=== PATIENT | female | born 1985 | race Caucasian/White ===

== ENCOUNTER 2019-05-03 14:22 | Emergency (ER) | payer BC ==
[2019-05-03] MEDS ORDERED: Sodium Chloride 0.9% 1,000 ML IV ONE (14:58)
[2019-05-03] MEDS ORDERED: Sodium Chloride 0.9% 10 ML Syringe FLUSH PRN (14:58)
[2019-05-03] MEDS ORDERED: HYDROmorphone 1 MG/ML Syringe IVPUSH ONE (14:58)
[2019-05-03] MEDS ORDERED: Ondansetron 4 MG/2 ML SDV IVPUSH ONE (14:58)
[2019-05-03 15:49] LABS: ANION GAP 16.9 mmol/L (5-15); CHLORIDE,CL 105 mmol/L (98-115); SODIUM,NA 142 mmol/L (136-145)
--- NOTE | 2019-05-03 16:24 | CT ---
[id number] CT/CT Abdomen Pelvis WO IV EXAM: CT Abdomen Pelvis WO IV CLINICAL DATA: ABDOMINAL PAIN. COMPARISON STUDY: None. FINDINGS: Lung bases are clear. Evaluation of the abdominal organs is extremely limited secondary to lack of IV and oral contrast. Additionally there is a possibility of intra-abdominal fat. The liver spleen, pancreas and adrenal glands are grossly unremarkable. There appear to be postsurgical changes of gastric bypass. There appears to be a 2 mm stone in the region of the left vesicoureteral junction resulting in mild left hydroureteronephrosis. Additional punctate stones within the right and left kidneys. No right hydronephrosis or hydroureter. No bowel obstruction or inflammation. No lymphadenopathy, free fluid, or pneumoperitoneum. Technique 3.5 cm right adnexal cyst. Scattered changes of spondylosis the spine. No fracture or osseous lesion. IMPRESSION: There appears to be a 2 mm stone in the region of the left vesicoureteral junction resulting in mild left hydroureteronephrosis. Additional punctate stones are identified within the right and left kidney Henry Tubbs DO 05/03/19 1623 Thank you for allowing us to participate in the care of your patient.
[2019-05-03] MEDS ORDERED: Ondansetron 4 MG Tab.DIS PO ONE (16:31)
[2019-05-03] MEDS ORDERED: Acetaminophen/oxyCODONE 325-5 MG Tab PO ONE (16:31)
[2019-05-03] MEDS ORDERED: Tamsulosin 0.4 MG Cap.ER PO ONE (16:31)
--- NOTE | 2019-05-03 16:34 | EDM.PDOC ---
ED HPI GENERAL MEDICAL PROBLEM - General Chief Complaint: General Stated Complaint: LEFT SIDE PAIN Time Seen by Provider: 05/03/19 14:39 Source of Information: Reports: Patient History Limitations: Reports: No Limitations - History of Present Illness INITIAL COMMENTS - FREE TEXT/NARRATIVE: Patient is a 34-year-old female who presents to the emergency department this afternoon with a complaint of left flank and left lower abdominal pain. Patient states that the pain started just shortly before arrival. She feels nauseous and noticed dark urine also. Patient has a history of gastric bypass, but denies history of renal calculi. Patient also denies chest pain, shortness of breath, bowel changes, low back pain, any trauma, fever, or blood in stool. Onset: Today Duration: Hour(s): Location: Reports: Abdomen, Back Quality: Reports: Sharp Severity: Moderate Improves with: Reports: None Worsens with: Reports: None Associated Symptoms: Reports: Nausea/Vomiting Left Flank Pain Score (Numeric/FACES): 10 - Related Data Allergies Allergy/AdvReac Type Severity Reaction Status Date / Time No Known Drug Allergies Allergy NKDA Verified 04/03/14 12:29 Home Meds: Home Meds Albuterol Sulfate [Albuterol Sulfate HFA] 1 - 2 puff INH ASDIRECTED PRN [History] Albuterol/Ipratropium [DuoNeb 3.0-0.5 MG/3 ML] 1 unit INH Q6H PRN 04/03/14 [ History] Fluticasone Propionate [Flovent HFA 110 MCG] 1 puff INH BID 04/03/14 [History] Multivitamin with Minerals [Multiple Vitamin] 1 tab PO DAILY 04/03/14 [History] ED ROS GENERAL - Review of Systems Review Of Systems: Comprehensive ROS is negative, except as noted in HPI. Constitutional: Reports: No Symptoms HEENT: Reports: No Symptoms Respiratory: Reports: No Symptoms Cardiovascular: Reports: No Symptoms Endocrine: Reports: No Symptoms GI/Abdominal: Reports: Abdominal Pain : Reports: Flank Pain, Hematuria Musculoskeletal: Reports: No Symptoms Skin: Reports: No Symptoms Neurological: Reports: No Symptoms Psychiatric: Reports: No Symptoms Hematologic/Lymphatic: Reports: No Symptoms Immunologic: Reports: No Symptoms ED EXAM, GENERAL - Physical Exam Exam: See Below Exam Limited By: No Limitations General Appearance: Alert, WD/WN, Moderate Distress Throat/Mouth: Normal Inspection, Normal Oropharynx, No Airway Compromise Head: Atraumatic, Normocephalic Neck: Normal Inspection, Supple Respiratory/Chest: No Respiratory Distress, Lungs Clear, Normal Breath Sounds, No Accessory Muscle Use, Chest Non-Tender Cardiovascular: Regular Rate, Rhythm, No Murmur GI/Abdominal: Normal Bowel Sounds, Soft, Tender (Left lower quadrant) Back Exam: CVA Tenderness (L). No: CVA Tenderness (R) Extremities: Normal Inspection, No Pedal Edema Neurological: Alert, Oriented, Normal Cognition Psychiatric: Normal Affect, Normal Mood Skin Exam: Warm, Dry, Intact, Normal Color, No Rash Lymphatic: No Adenopathy Course - Vital Signs Last Recorded V/S: Last Vital Signs Temp 97.0 F 05/03/19 14:40 Pulse 52 L 05/03/19 14:40 Resp 24 H 05/03/19 14:40 BP 141/93 H 05/03/19 14:40 Pulse Ox 100 05/03/19 14:40 - Orders/Labs/Meds Orders: Active Orders 24 hr Category Date Time Status Peripheral IV Care [RC] . DIRECTED Care 05/03/19 14:59 Ordered Sodium Chloride 0.9% [Saline Flush] Med 05/03/19 14:58 Ordered 10 ml FLUSH Q8HR PRN Peripheral IV Insertion Adult [OM.PC] Routine Oth 05/03/19 14:58 Ordered Medication Orders Sodium Chloride (Saline Flush) 10 ml FLUSH Q8HR PRN PRN Reason: keep vein open Last Admin: 05/03/19 15:44 Dose: 10 ml Labs: Laboratory Tests 05/03/19 05/03/19 05/03/19 Range/Units 14:50 15:22 15:22 WBC 10.01 H (5.00-10.00) 10^3/uL RBC 4.21 (3.80-5.50) 10^6/uL Hgb 9.5 L (12.0-16.0) g/dL Hct 31.6 L (37.0-47.0) % MCV 75.1 L (82.0-92.0) fL MCH 22.6 L (27.0-31.0) pg MCHC 30.1 L (32.0-36.0) g/dL RDW 16.9 H (11.5-14.5) % Plt Count 429 H (150-400) 10^3/uL MPV 9.0 (7.4-10.4) fL Immature Gran % (Auto) 0.1 (0.0-5.0) % Neut % (Auto) 75.7 H (50.0-70.0) % Lymph % (Auto) 17.4 L (20.0-40.0) % [place] % (Auto) 4.5 (2.0-8.0) % Eos % (Auto) 1.7 (1.0-3.0) % Baso % (Auto) 0.6 (0.0-1.0) % Immature Gran # (Auto) 0.01 (0.00-0.50) 10^3/uL Neut # (Auto) 7.58 H (2.50-7.00) 10^3/uL Lymph # (Auto) 1.74 (1.00-4.00) 10^3/uL [place] # (Auto) 0.45 (0.10-0.80) 10^3/uL Eos # (Auto) 0.17 (0.10-0.30) 10^3/uL Baso # (Auto) 0.06 (0.00-0.10) 10^3/uL Sodium 142 (136-145) mmol/L Potassium 3.9 (3.3-5.3) mmol/L Chloride 105 (98-115) mmol/L Carbon Dioxide 24.0 (21.0-32.0) mmol/L Anion Gap 16.9 H (5-15) mmol/L BUN 19 (6-25) mg/dL Creatinine 0.82 (0.51-1.17) mg/dL Est Cr Clr Drug Dosing TNP Estimated GFR (MDRD) > 60 mL/min Glucose 116 H (75 - 99) mg/dL Calcium 9.2 (8.7-10.3) mg/dL Total Bilirubin 0.7 (0.2-1.0) mg/dL AST 45 H (15-37) U/L ALT 54 (12-78) U/L Alkaline Phosphatase 76 (46-116) IU/L Total Protein 6.7 (6.4-8.2) g/dL Albumin 3.69 (3.00-4.80) g/dL Specimen Type Urine Color (YELLOW) Urine Appearance (CLEAR) Urine pH (5.0-9.0) Ur Specific [place] (1.005-1.030) Urine Protein (NEGATIVE) mg/dL Urine Glucose (UA) (NEGATIVE) mg/dL Urine Ketones (NEGATIVE) mg/dL Urine Occult Blood (NEGATIVE) Urine Nitrite (NEGATIVE) Urine Bilirubin (NEGATIVE) Urine Urobilinogen (0.2-1.0) E.U./dL Ur Leukocyte Esterase (NEGATIVE) Urine RBC (0-5) /HPF Urine WBC (0-5) /HPF Ur Epithelial Cells /LPF Urine Bacteria (NONE TO FEW) /HPF Urine Mucus (NEGATIVE) /LPF Urine HCG, Qual Negative (NEGATIVE) 05/03/19 Range/Units 15:35 WBC (5.00-10.00) 10^3/uL RBC (3.80-5.50) 10^6/uL Hgb (12.0-16.0) g/dL Hct (37.0-47.0) % MCV (82.0-92.0) fL MCH (27.0-31.0) pg MCHC (32.0-36.0) g/dL RDW (11.5-14.5) % Plt Count (150-400) 10^3/uL MPV (7.4-10.4) fL Immature Gran % (Auto) (0.0-5.0) % Neut % (Auto) (50.0-70.0) % Lymph % (Auto) (20.0-40.0) % [place] % (Auto) (2.0-8.0) % Eos % (Auto) (1.0-3.0) % Baso % (Auto) (0.0-1.0) % Immature Gran # (Auto) (0.00-0.50) 10^3/uL Neut # (Auto) (2.50-7.00) 10^3/uL Lymph # (Auto) (1.00-4.00) 10^3/uL [place] # (Auto) (0.10-0.80) 10^3/uL Eos # (Auto) (0.10-0.30) 10^3/uL Baso # (Auto) (0.00-0.10) 10^3/uL Sodium (136-145) mmol/L Potassium (3.3-5.3) mmol/L Chloride (98-115) mmol/L Carbon Dioxide (21.0-32.0) mmol/L Anion Gap (5-15) mmol/L BUN (6-25) mg/dL Creatinine (0.51-1.17) mg/dL Est Cr Clr Drug Dosing Estimated GFR (MDRD) mL/min Glucose (75 - 99) mg/dL Calcium (8.7-10.3) mg/dL Total Bilirubin (0.2-1.0) mg/dL AST (15-37) U/L ALT (12-78) U/L Alkaline Phosphatase (46-116) IU/L Total Protein (6.4-8.2) g/dL Albumin (3.00-4.80) g/dL Specimen Type . Urine Color Yellow (YELLOW) Urine Appearance Slightly cloudy H (CLEAR) Urine pH 7.0 (5.0-9.0) Ur Specific [place] 1.020 (1.005-1.030) Urine Protein 30 H (NEGATIVE) mg/dL Urine Glucose (UA) Negative (NEGATIVE) mg/dL Urine Ketones >=160 H (NEGATIVE) mg/dL Urine Occult Blood Large H (NEGATIVE) Urine Nitrite Negative (NEGATIVE) Urine Bilirubin Small H (NEGATIVE) Urine Urobilinogen 1.0 (0.2-1.0) E.U./dL Ur Leukocyte Esterase Negative (NEGATIVE) Urine RBC 75-100 H (0-5) /HPF Urine WBC 0-5 (0-5) /HPF Ur Epithelial Cells Many H /LPF Urine Bacteria Few (NONE TO FEW) /HPF Urine Mucus Few H (NEGATIVE) /LPF Urine HCG, Qual (NEGATIVE) Meds: Medications Generic Name Dose Route Start Last Admin Trade Name Freq PRN Reason Stop Dose Admin Sodium Chloride 10 ml 05/03/19 14:58 05/03/19 15:44 Saline Flush FLUSH 10 ml Q8HR PRN Administration keep vein open Discontinued Medications Generic Name Dose Route Start Last Admin Trade Name Freq PRN Reason Stop Dose Admin Hydromorphone HCl 0.5 mg 05/03/19 14:58 05/03/19 15:45 Dilaudid IVPUSH 05/03/19 14:59 0.5 mg ONETIME ONE Administration Sodium Chloride 1,000 mls @ 999 mls/hr 05/03/19 14:58 05/03/19 16:08 Normal Saline IV 05/03/19 15:58 999 mls/hr .BOLUS ONE Administration Ondansetron HCl 4 mg 05/03/19 14:58 05/03/19 15:45 Zofran IVPUSH 05/03/19 14:59 4 mg ONETIME ONE Administration Ondansetron HCl 16 mg 05/03/19 16:31 Zofran Odt PO 05/03/19 16:32 ONETIME ONE Oxycodone/Acetaminophen 6 tab 05/03/19 16:31 Percocet 325-5 Mg PO 05/03/19 16:32 ONETIME ONE Tamsulosin HCl 1.2 mg 05/03/19 16:31 Flomax PO 05/03/19 16:32 ONETIME ONE - Radiology Interpretation Free Text/Narrative:: CT abdomen and pelvis without contrast shows a 2 mm calculi at the UVJ with mild hydronephrosis on left - Re-Assessments/Exams Free Text/Narrative Re-Assessment/Exam: 05/03/19 16:34 Patient afebrile, vital signs stable, pain relieved. Patient given Percocet, Flomax, and Zofran to go. Patient will follow-up in 2 days at [facility] for urology referral. Departure - Departure Time of Disposition: 16:38 Disposition: Home, Self-Care 01 Condition: Good Clinical Impression: Renal and ureteric calculus - Discharge Information Instructions: Kidney Stones, [id number], Renal Colic, [id number] Referrals: Yina Chang MD [Primary Care Provider] - Forms: ED Department Discharge Additional Instructions: Follow-up at [facility] on Sunday for urology referral. Return to emergency department sooner symptoms continue or worsen. Take medication as directed Sepsis Event Note - Evaluation Sepsis Screening Result: No Definite Risk - Focused Exam Vital Signs: Vital Signs Temp Pulse Resp BP Pulse Ox 05/03/19 14:40 97.0 F 52 L 24 H 141/93 H 100 Date Exam was Performed: 05/03/19 Time Exam was Performed: 16:34 - My Orders Last 24 Hours: My Active Orders 05/03/19 14:58 Sodium Chloride 0.9% [Saline Flush] 10 ml FLUSH Q8HR PRN Peripheral IV Insertion Adult [OM.PC] Routine 05/03/19 14:59 Peripheral IV Care [RC] . DIRECTED - Assessment/Plan Last 24 Hours: My Active Orders 05/03/19 14:58 Sodium Chloride 0.9% [Saline Flush] 10 ml FLUSH Q8HR PRN Peripheral IV Insertion Adult [OM.PC] Routine 05/03/19 14:59 Peripheral IV Care [RC] . DIRECTED Assessment:: Renal calculi Plan: Follow-up with PCP for urology department
== END 2019-05-03 17:15 | disposition home or self-care (01) ==
LOC: KA.ED 14:22
DX: N13.2 Hydronephrosis with renal and ureteral calculous obstruction (principal)
CPT/HCPCS: 36415; 74176; 80053; 81001; 81025; 85025; 96361; 96374; 96375; 99284-25; A9270-GY; J1170; J2405; J7030

== ENCOUNTER 2019-08-01 12:59 | Emergency (ER) | payer BC, OTHER ==
[2019-08-01] MEDS ORDERED: Acetaminophen/HYDROcodone 325-5 MG Tab PO ONE (13:13)
--- NOTE | 2019-08-01 13:39 | CR ---
[id number] RAD/RAD Knee Right 3V EXAM: RAD Knee Right 3V CLINICAL DATA: TRAUMA COMPARISON: NO PREVIOUS SIMILAR EXAM IS AVAILABLE. FINDINGS: No fracture or dislocation is seen. There is no radiopaque foreign body in the soft tissues. There is no air in the soft tissues. There is no cortical thickening or periosteal reaction either. IMPRESSION: NEGATIVE PLAIN FILM EXAM. Hugo Villela MD 08/01/19 [id number] Thank you for allowing us to participate in the care of your patient.
--- NOTE | 2019-08-01 14:12 | EDM.PDOC ---
ED HPI GENERAL MEDICAL PROBLEM - General Chief Complaint: General Stated Complaint: R KNEE PAIN Time Seen by Provider: 08/01/19 13:32 Source of Information: Reports: Patient, Other (boss) History Limitations: Reports: No Limitations - History of Present Illness INITIAL COMMENTS - FREE TEXT/NARRATIVE: Patient presents with right upper calf pain that started suddenly about an hour ago. 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 It hurts to plantar flex with walking and she can't stand on her toes with the right foot now. She denies any other injury. She also tells me she had a hysterectomy about 8 weeks ago and was on bedrest for the following 6 weeks. No blood thinners. She denies dyspnea or any chest pain. Right Posterior Knee Pain Score (Numeric/FACES): 8 - Related Data Allergies Allergy/AdvReac Type Severity Reaction Status Date / Time No Known Drug Allergies Allergy NKDA Verified 04/03/14 12:29 Home Meds: Home Meds Albuterol Sulfate [Albuterol Sulfate HFA] 1 - 2 puff INH ASDIRECTED PRN [History] Albuterol/Ipratropium [DuoNeb 3.0-0.5 MG/3 ML] 1 unit INH Q6H PRN 04/03/14 [ History] Multivitamin with Minerals [Multiple Vitamin] 1 tab PO DAILY 04/03/14 [History] Escitalopram [Lexapro] 20 mg PO DAILY 08/01/19 [History] busPIRone HCl [Buspirone HCl] 7.5 mg PO BID 08/01/19 [History] Social & Family History - Tobacco Use Smoking Status *Q: Never Smoker Second Hand Smoke Exposure: No - Caffeine Use Caffeine Use: Reports: Coffee, Energy Drinks - Recreational Drug Use Recreational Drug Use: No ED ROS GENERAL - Review of Systems Review Of Systems: See Below Constitutional: Denies: Fever, Chills, Malaise, Weakness HEENT: Reports: No Symptoms Respiratory: Denies: Shortness of Breath, Cough Cardiovascular: Denies: Chest Pain, Lightheadedness, Syncope Endocrine: Denies: Fatigue GI/Abdominal: Denies: Abdominal Pain, Diarrhea, Vomiting : Denies: Dysuria, Flank Pain Musculoskeletal: Reports: Leg Pain. Denies: Neck Pain, Shoulder Pain, Arm Pain , Back Pain, Hand Pain, Joint Pain Skin: Denies: Cyanosis, Jaundice, Mottled, Pallor, Diaphoresis Neurological: Denies: Confusion, Dizziness, Headache, Seizure, Syncope, Trouble Speaking, Difficulty Walking Psychiatric: Denies: Agitation, Anxiety, Confusion Hematologic/Lymphatic: Denies: Easy Bleeding ED EXAM, GENERAL - Physical Exam Exam: See Below Exam Limited By: No Limitations General Appearance: Alert, WD/WN, No Apparent Distress Eye Exam: Bilateral Eye: EOMI, Normal Inspection, PERRL Ears: Normal External Exam, Hearing Grossly Normal Nose: Normal Inspection, No Blood Throat/Mouth: Normal Inspection, Normal Lips, Normal Voice, No Airway Compromise Head: Atraumatic, Normocephalic Neck: Full Range of Motion Respiratory/Chest: No Respiratory Distress, Lungs Clear, Normal Breath Sounds, No Accessory Muscle Use Cardiovascular: Regular Rate, Rhythm, No Murmur GI/Abdominal: Normal Bowel Sounds, Soft, Non-Tender, No Organomegaly, No Distention, No Abnormal Bruit Back Exam: Normal Inspection, Full Range of Motion. No: CVA Tenderness (L), CVA Tenderness (R) Extremities: Normal Range of Motion, No Pedal Edema, Normal Capillary Refill, Pan's Sign, Leg Pain, Other (Bilateral calves measure 44 cm in circumference. Palpation of small area in right upper calf is very tender to palpation but no tesfaye sign or deficit evident and calf is not tender throughout. Achilles is not tender or injured per exam. Plantar and dorsiflexion is intact but painful both active and passive on right. No Ulrich's cyst evident. Knee ROM normal.). No: Increased Warmth, Mottled, Pallor, Redness Course - Vital Signs Last Recorded V/S: Last Vital Signs Temp 97 F 08/01/19 13:10 Pulse 77 08/01/19 13:10 Resp 20 08/01/19 13:10 BP 115/70 08/01/19 13:10 Pulse Ox 97 08/01/19 13:10 - Orders/Labs/Meds Meds: Medications Discontinued Medications Generic Name Dose Route Start Last Admin Trade Name Freq PRN Reason Stop Dose Admin Hydrocodone Bitart/Acetaminophen 2 tab 08/01/19 13:13 08/01/19 13:21 [place] 325-5 Mg PO 08/01/19 13:14 2 tab ONETIME ONE Administration - Re-Assessments/Exams Free Text/Narrative Re-Assessment/Exam: 08/01/19 14:32 This is most likely either a muscle tear or a DVT. I also discussed this with Anjum GARRIDO to see if we could reliably rule out DVT with d-dimer but since her recent surgery puts her in the medium risk category we should get US. We talked with [facility] tech and she can come over here to do the US in the ER shortly. Patient is feeling better with the hydrocodone. 08/01/19 16:27 Xrays show no pathology. US shows no evidence of DVT or definite muscle tear. Findings most consistent with popliteal cyst or possibly hematoma associated with small muscle injury. Discussed findings with patient and with her PCP Dr. Chang. With her history of gastric bypass surgery she is quite limited with any NSAID use but could use Naproxen very sparingly. 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 Chang then to re-evaluate and determine work status beyond that. Patient okay with this plan and discharged to home in stable condition. Departure - Departure Time of Disposition: 16:24 Disposition: Home, Self-Care 01 Condition: Good Clinical Impression: Popliteal cyst Qualifiers: Laterality: right Qualified Code(s): M71.21 - Synovial cyst of popliteal space [Ulrich], right knee - Discharge Information Instructions: Ulrich Cyst Referrals: Yojana Ordoñez PA-C [Primary Care Provider] - Additional Instructions: 1. Drink 8 cups of water daily. 2. Try to avoid movements and activities that cause worse pain. 3. Use cold packs 2-4 times a day for the next 2 days then alternate with cold and warm packs. 4. Follow up with Dr. Chang on Sunday. Call them today to schedule this. 5. You use Tylenol for pain control and Naproxen sparingly if needed. Sepsis Event Note - Evaluation Sepsis Screening Result: No Definite Risk - Focused Exam Vital Signs: Vital Signs Temp Pulse Resp BP Pulse Ox 08/01/19 13:10 97 F 77 20 115/70 97 Date Exam was Performed: 08/01/19 Time Exam was Performed: 13:58
--- NOTE | 2019-08-01 16:03 | US ---
[id number] US/US Venous Doppler LE Right EXAM: US Venous Doppler LE Right INDICATION: CALF PAIN. COMPARISON: None. DISCUSSION: The deep venous structures are compressible. No valvular incompetence or pulsatility seen. Spontaneity, phasicity and response to augmentation were noted by the technologist. In the medial and posterior aspect of the lower leg there is a 15 x 11 x 7 mm hypoechoic structure. Location appearance is most consistent with a small popliteal cyst. In the setting of injury, small hematoma is also possible. Correlate with site of injury. IMPRESSION: Negative for DVT. Other findings are described above. Kleber Mei MD 08/01/19 6643 Thank you for allowing us to participate in the care of your patient.
[2019-08-01 16:11] LABS: BARBITURATE SCREEN,URINE NEGATIVE (NEGATIVE); BENZODIAZEPINES SCREEN,URINE NEGATIVE (NEGATIVE); TCA SCREEN,URINE NEGATIVE (NEGATIVE); THC SCREEN,URINE 50 NG/ML NEGATIVE (NEGATIVE)
== END 2019-08-01 16:35 | disposition home or self-care (01) ==
LOC: KA.ED 12:59
DX: M71.21 Synovial cyst of popliteal space [Baker], right knee (principal)
CPT/HCPCS: 73562-RT; 80305-QW; 93971; 99284-25; A9270-GY

== ENCOUNTER 2021-02-22 01:46 | Emergency (ER) | payer OTHER ==
[2021-02-22] MEDS ORDERED: predniSONE 20 MG Tab ONE (01:52)
[2021-02-22] MEDS ORDERED: predniSONE 20 MG Tab PO ONE (01:53)
[2021-02-22] MEDS ORDERED: predniSONE 10 MG Tab PO ONE (02:08)
[2021-02-22] MEDS ORDERED: Albuterol 0.083% 2.5 MG/3 ML Neb Soln NEB ONE ×2 (02:09→02:19)
--- NOTE | 2021-02-22 02:18 | EDM.PDOC ---
ED HPI GENERAL MEDICAL PROBLEM - General Chief Complaint: General Stated Complaint: Shortness of breath Time Seen by Provider: 02/22/21 02:04 Source of Information: Reports: Patient History Limitations: Reports: No Limitations - History of Present Illness INITIAL COMMENTS - FREE TEXT/NARRATIVE: Patient presents emergency room for shortness of breath and asthma exacerbation. There has been recent smoke in the air which causes it. She has been doing nebs throughout the day with not much relief. Patient has shortness of breath chest tightness with breathing, wheezing and mild cough. She has no other cold symptoms no pneumonia symptoms. She was tested earlier in the clinic and was negative for COVID-19. Patient states this is exactly like her asthma exacerbation. She denies smoking. Bilateral Chest/Back Pain Score (Numeric/FACES): 5 - Related Data Allergies Allergy/AdvReac Type Severity Reaction Status Date / Time No Known Drug Allergies Allergy NKDA Verified 02/22/21 01:54 Home Meds: Home Meds Albuterol Sulfate [Albuterol Sulfate HFA] 1 - 2 puff INH ASDIRECTED PRN 04/03/14 [History] Albuterol/Ipratropium [DuoNeb 3.0-0.5 MG/3 ML] 1 unit INH Q6H PRN 04/03/14 [History] Multivitamin with Minerals [Multiple Vitamin] 1 tab PO DAILY 04/03/14 [History] Escitalopram [Lexapro] 20 mg PO DAILY 08/01/19 [History] busPIRone HCl [Buspirone HCl] 7.5 mg PO BID 08/01/19 [History] Past Medical History HEENT History: Reports: None Cardiovascular History: Reports: None Respiratory History: Reports: Asthma Gastrointestinal History: Reports: None Genitourinary History: Reports: 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: Musculoskeletal History: Reports: None Neurological History: Reports: Migraines Psychiatric History: Reports: Anxiety, Depression Endocrine/Metabolic History: Reports: None Hematologic History: Reports: None Immunologic History: Reports: None Oncologic (Cancer) History: Reports: None Dermatologic History: Reports: None - Infectious Disease History Infectious Disease History: Reports: None - Past Surgical History Head Surgeries/Procedures: Reports: None HEENT Surgical History: Reports: None Cardiovascular Surgical History: Reports: None Respiratory Surgical History: Reports: None GI Surgical History: Reports: Other (See Below) Other GI Surgeries/Procedures: gastric bypass 2007 Female Surgical History: Reports: Hysterectomy Musculoskeletal Surgical History: Reports: None Dermatological Surgical History: Reports: None Social & Family History - Family History Family Medical History: No Pertinent Family History - Tobacco Use Tobacco Use Status *Q: Former Tobacco User Used Tobacco, but Quit: Yes Month/Year Tobacco Last Used: 2012 - Caffeine Use Caffeine Use: Reports: Coffee - Recreational Drug Use Recreational Drug Use: No ED ROS GENERAL - Review of Systems Review Of Systems: See Below Constitutional: Reports: No Symptoms HEENT: Reports: No Symptoms Respiratory: Reports: Shortness of Breath, Wheezing, Cough Cardiovascular: Reports: Chest Pain Endocrine: Reports: No Symptoms GI/Abdominal: Reports: No Symptoms Musculoskeletal: Reports: No Symptoms Skin: Reports: No Symptoms Neurological: Reports: No Symptoms Psychiatric: Reports: No Symptoms ED EXAM, GENERAL - Physical Exam Exam: See Below Exam Limited By: No Limitations General Appearance: Alert, WD/WN, No Apparent Distress Ear Exam: Bilateral Ear: TM normal Nose: Normal Inspection Throat/Mouth: Normal Inspection, Normal Oropharynx Head: Atraumatic, Normocephalic Neck: Normal Inspection, Supple Respiratory/Chest: Wheezing. No: Respiratory Distress, Stridor, Accessory Muscle Use, Retractions Cardiovascular: Normal Peripheral Pulses, Regular Rate, Rhythm Neurological: Alert, Oriented, Normal Cognition Psychiatric: Normal Affect, Normal Mood Skin Exam: Warm, Dry, Intact Course - Vital Signs Last Recorded V/S: Last Vital Signs Temp 97.4 F 02/22/21 01:57 Pulse 85 02/22/21 01:57 Resp 24 H 02/22/21 01:57 BP 142/85 H 02/22/21 01:57 Pulse Ox 92 L 02/22/21 01:57 - Orders/Labs/Meds Orders: Active Orders 24 hr Category Date Time Status RT Aerosol Therapy [RC] ASDIRECTED Care 02/22/21 02:09 Active Meds: Medications Discontinued Medications Generic Name Dose Route Start Last Admin Trade Name Freq PRN Reason Stop Dose Admin Albuterol 2.5 mg 02/22/21 02:09 Albuterol 0.083% 2.5 Mg/3 Ml Neb Soln NEB 02/22/21 02:10 ONETIME ONE Prednisone 40 mg 02/22/21 01:53 02/22/21 01:53 Prednisone 20 Mg Tab PO 02/22/21 01:54 40 mg ONETIME ONE Administration Prednisone Confirm 02/22/21 01:52 02/22/21 02:07 Prednisone 20 Mg Tab Administered 02/22/21 01:53 Not Given Dose 40 mg .ROUTE .STK-MED ONE Prednisone 10 mg 02/22/21 02:08 Prednisone 10 Mg Tab PO 02/22/21 02:09 ONETIME ONE - Re-Assessments/Exams Free Text/Narrative Re-Assessment/Exam: 02/22/21 02:16 50 mg of prednisone given with an albuterol nebulizer. Patient's oxygen saturations 96 to 100% on room air. Patient in no acute distress but she is definitely having asthma exacerbation. Going to give her 40 mg of prednisone p.o. for the next 4 days follow-up in clinic later this week if not better. Patient was given strict return precautions emergency room. Low threshold on returning. Work note also provided. She has plenty nebs as well. Departure - Departure Time of Disposition: 02:13 Disposition: Home, Self-Care 01 Condition: Good Clinical Impression: Asthma Qualifiers: Asthma severity: moderate Asthma persistence: unspecified Asthma complication type: with acute exacerbation Qualified Code(s): J45.901 - Unspecified asthma with (acute) exacerbation - Discharge Information *PRESCRIPTION DRUG MONITORING PROGRAM REVIEWED*: No *COPY OF PRESCRIPTION DRUG MONITORING REPORT IN PATIENT MIREYA: No Instructions: Asthma, Adult Referrals: Yina Chang MD [Primary Care Provider] - Care Plan Goals: continue nebs, f/u with PCP in the next few days if no improvement, please do not hesitate to return to emergency room for any no further improvement or any worsening symptoms. Sepsis Event Note (ED) - Evaluation Sepsis Screening Result: No Definite Risk - Focused Exam Vital Signs: Vital Signs Temp Pulse Resp BP Pulse Ox 02/22/21 01:57 97.4 F 85 24 H 142/85 H 92 L - My Orders Last 24 Hours: My Active Orders 02/22/21 02:09 RT Aerosol Therapy [RC] ASDIRECTED - Assessment/Plan Last 24 Hours: My Active Orders 02/22/21 02:09 RT Aerosol Therapy [RC] ASDIRECTED
[2021-02-22 02:26] VITALS: PULSE 80
[2021-02-22 02:52] VITALS: BP 126/93
== END 2021-02-22 02:33 | disposition home or self-care (01) ==
LOC: KA.ED 01:46
DX: J45.901 Unspecified asthma with (acute) exacerbation (principal); Z79.899 Other long term (current) drug therapy
CPT/HCPCS: 94640; 99284; J7512; J7613-GY

== ENCOUNTER 2021-04-10 03:57 | Emergency (ER) | payer OTHER ==
[2021-04-10] MEDS: Albuterol 0.083% 2.5 MG/3 ML Neb Soln NEB ONE (04:04)
[2021-04-10] MEDS: Albuterol 0.083% 2.5 MG/3 ML Neb Soln ONE (04:10)
[2021-04-10] MEDS: Albuterol/Ipratropium 3.0-0.5 MG/3 ML Neb Soln ONE (04:10)
--- NOTE | 2021-04-10 04:20 | EDM.PDOC ---
ED HPI GENERAL MEDICAL PROBLEM - General Chief Complaint: General Stated Complaint: Asthma Attack Time Seen by Provider: 04/10/21 04:10 Source of Information: Reports: Patient History Limitations: Reports: No Limitations - History of Present Illness INITIAL COMMENTS - FREE TEXT/NARRATIVE: 36 YO WF PRESENTS TO ER COMPLAINING OF SHORTNESS OF BREATH WHICH BEGAN AROUND MIDNIGHT TONIGHT. PT WITH PMH OF ASTHMA WITH PREVIOUS ER VISIT APPROXIMATELY 1 MONTH AGO FOR SAME. PT DENIES ANY COVID CONCERNS, STATES THIS IS TYPICAL OF HER PREVIOUS ASTHMA EXACERBATIONS. PT DENIES URI SYMPTOMS, NO FEVER/CHILLS. PT DENIES ANY PAST HISTORY OF RESPIRATORY FAILURE OR REQUIRED HOSPITALIZATIONS FOR HER ASTHMA EXACERBATION IN THE PAST. PT STATES SHE HAS BEEN USING HER ALBUTEROL AT HOME WITHOUT IMPROVEMENT. PT DENIES CHEST PAIN OR DIAPHORESIS. Onset: Today Duration: Hour(s): (4) Location: Reports: Chest Severity: Moderate Improves with: Reports: Medication Worsens with: Reports: None Associated Symptoms: Reports: Shortness of Breath Treatments CLINICAL EDUCATION CONSULTANT: Reports: Breathing Treatments - Related Data Allergies Allergy/AdvReac Type Severity Reaction Status Date / Time No Known Drug Allergies Allergy NKDA Verified 04/10/21 04:04 Home Meds: Home Meds Albuterol Sulfate [Albuterol Sulfate HFA] 1 - 2 puff INH ASDIRECTED PRN 04/03/14 [History] Albuterol/Ipratropium [DuoNeb 3.0-0.5 MG/3 ML] 1 unit INH Q6H PRN 04/03/14 [History] Multivitamin with Minerals [Multiple Vitamin] 1 tab PO DAILY 04/03/14 [History] Escitalopram [Lexapro] 20 mg PO DAILY 08/01/19 [History] busPIRone HCl [Buspirone HCl] 7.5 mg PO BID 08/01/19 [History] predniSONE 20 mg PO WITHBREAKFAST #15 tab 04/10/21 [Rx] Past Medical History HEENT History: Reports: None Cardiovascular History: Reports: None Respiratory History: Reports: Asthma Gastrointestinal History: Reports: None Genitourinary History: Reports: 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: Musculoskeletal History: Reports: None Neurological History: Reports: Migraines Psychiatric History: Reports: Anxiety, Depression Endocrine/Metabolic History: Reports: None Hematologic History: Reports: None Immunologic History: Reports: None Oncologic (Cancer) History: Reports: None Dermatologic History: Reports: None - Infectious Disease History Infectious Disease History: Reports: None - Past Surgical History Head Surgeries/Procedures: Reports: None HEENT Surgical History: Reports: None Cardiovascular Surgical History: Reports: None Respiratory Surgical History: Reports: None GI Surgical History: Reports: Other (See Below) Other GI Surgeries/Procedures: gastric bypass 2007 Female Surgical History: Reports: Hysterectomy Musculoskeletal Surgical History: Reports: None Dermatological Surgical History: Reports: None Social & Family History - Family History Family Medical History: No Pertinent Family History - Caffeine Use Caffeine Use: Reports: Coffee ED ROS GENERAL - Review of Systems Review Of Systems: See Below Constitutional: Reports: No Symptoms HEENT: Reports: No Symptoms Respiratory: Reports: Shortness of Breath, Wheezing Cardiovascular: Reports: No Symptoms Endocrine: Reports: No Symptoms GI/Abdominal: Reports: No Symptoms : Reports: No Symptoms Musculoskeletal: Reports: No Symptoms Skin: Reports: No Symptoms Neurological: Reports: No Symptoms Psychiatric: Reports: No Symptoms Hematologic/Lymphatic: Reports: No Symptoms Immunologic: Reports: No Symptoms ED EXAM, GENERAL - Physical Exam Exam: See Below Exam Limited By: No Limitations General Appearance: Alert, WD/WN, No Apparent Distress Eye Exam: Bilateral Eye: PERRL Head: Atraumatic, Normocephalic Neck: Normal Inspection, Supple, Non-Tender, Full Range of Motion Respiratory/Chest: No Respiratory Distress, Chest Non-Tender, Wheezing, Accessory Muscle Use Cardiovascular: Normal Peripheral Pulses, Regular Rate, Rhythm, No Edema, No Gallop, No JVD, No Murmur, No Rub GI/Abdominal: Normal Bowel Sounds, Soft, Non-Tender, No Organomegaly, No Distention, No Abnormal Bruit, No Mass Back Exam: Normal Inspection, Full Range of Motion, NT Extremities: Normal Inspection, Normal Range of Motion, Non-Tender, Normal Capillary Refill, No Pedal Edema Neurological: Alert, Oriented, CN II-XII Intact, Normal Cognition, Normal Gait, No Motor/Sensory Deficits Psychiatric: Normal Affect, Normal Mood Skin Exam: Warm, Dry, Intact, Normal Color, No Rash Lymphatic: No Adenopathy Course - Vital Signs Last Recorded V/S: Last Vital Signs Temp 97.6 F 04/10/21 04:05 Pulse 84 04/10/21 04:55 Resp 26 H 04/10/21 04:54 BP 141/96 H 04/10/21 04:54 Pulse Ox 97 04/10/21 04:54 - Orders/Labs/Meds Orders: Active Orders 24 hr Category Date Time Status Peripheral IV Care [RC] . DIRECTED Care 04/10/21 04:25 Active RT Aerosol Therapy [RC] ASDIRECTED Care 04/10/21 04:04 Active RT Aerosol Therapy [RC] ASDIRECTED Care 04/10/21 04:51 Active Chest 2V [CR] Stat Exams 04/10/21 04:24 Ordered Sodium Chloride 0.9% [Normal Saline] 1,000 ml Med 04/10/21 04:24 Active IV .BOLUS Sodium Chloride 0.9% [Saline Flush] Med 04/10/21 04:24 Active 10 ml FLUSH Q8HR PRN Peripheral IV Insertion Adult [OM.PC] Routine Oth 04/10/21 04:24 Ordered Medication Orders Sodium Chloride (Normal Saline) 1,000 mls @ 999 mls/hr IV .BOLUS ONE Stop: 04/10/21 05:24 Last Admin: 04/10/21 04:39 Dose: 999 mls/hr Documented by: DIAMOND Sodium Chloride (Sodium Chloride 0.9% 10 Ml Syringe) 10 ml FLUSH Q8HR PRN PRN Reason: keep vein open Meds: Medications Generic Name Dose Route Start Last Admin Trade Name Freq PRN Reason Stop Dose Admin Sodium Chloride 1,000 mls @ 999 mls/hr 04/10/21 04:24 04/10/21 04:39 Normal Saline IV 04/10/21 05:24 999 mls/hr .BOLUS ONE Administration Sodium Chloride 10 ml 04/10/21 04:24 Sodium Chloride 0.9% 10 Ml Syringe FLUSH Q8HR PRN keep vein open Discontinued Medications Generic Name Dose Route Start Last Admin Trade Name Freq PRN Reason Stop Dose Admin Albuterol Confirm 04/10/21 04:02 04/10/21 04:10 Albuterol 0.083% 2.5 Mg/3 Ml Neb Soln Administered 04/10/21 04:03 Not Given Dose 2.5 mg .ROUTE .STK-MED ONE Albuterol 2.5 mg 04/10/21 04:04 04/10/21 04:04 Albuterol 0.083% 2.5 Mg/3 Ml Neb Soln NEB 04/10/21 04:05 2.5 mg ONETIME ONE Administration Albuterol/Ipratropium Confirm 04/10/21 04:00 04/10/21 04:10 Albuterol/Ipratropium 3.0-0.5 Mg/3 Ml Neb Soln Administered 04/10/21 04:01 Not Given Dose 3 ml .ROUTE .STK-MED ONE Albuterol/Ipratropium 3 ml 04/10/21 04:37 04/10/21 04:29 Albuterol/Ipratropium 3.0-0.5 Mg/3 Ml Neb Soln NEB 04/10/21 04:38 3 ml ONETIME ONE Administration Albuterol/Ipratropium 3 ml 04/10/21 04:51 04/10/21 04:53 Albuterol/Ipratropium 3.0-0.5 Mg/3 Ml Neb Soln NEB 04/10/21 04:52 3 ml ONETIME ONE Administration Methylprednisolone Sodium Succinate 125 mg 04/10/21 04:24 04/10/21 04:39 Methylprednisolone Sodium Succinate 125 Mg/2 Ml Sdv IVPUSH 04/10/21 04:25 125 mg ONETIME ONE Administration Prednisone 60 mg 04/10/21 05:04 Prednisone 20 Mg Tab PO 04/10/21 05:05 ONETIME ONE - Radiology Interpretation Free Text/Narrative:: CXR- NAD - Re-Assessments/Exams Free Text/Narrative Re-Assessment/Exam: 04/10/21 05:05 PT RECEIVED DUONEB TX X 2 AND ALBUTEROL X 1 WELL SOLUMEDROL 125MG IV AND SOME IV FLUIDS WHICH HAVE IMPROVED HER RESPIRATORY STATUS SIGNIFICANTLY. PT SA02 ON RA-98%. PT WITH SOME MILD SCATTERED WHEEZING BUT STATES SHE FEELS MUCH BETTER. PT GIVEN INSTRUCTIONS TO CONTINUE ALBUTEROL NEBS EVERY 4 HOURS AND NEEDED. PT GIVEN PREDNISONE 60MG X 5 DAYS. PT INSTRUCTED TO RETURN TO ER FOR WORSENING SYMPTOMS. Departure - Departure Time of Disposition: 05:10 Disposition: Home, Self-Care 01 Condition: Good Clinical Impression: Asthma exacerbation Qualifiers: Asthma severity: moderate - Discharge Information Prescriptions: predniSONE 20 mg PO WITHBREAKFAST #15 tab Instructions: Asthma, Adult Forms: ED Department Discharge Additional Instructions: 1. DISCHARGE HOME 2. CONTINUE ALBUTEROL NEBS EVERY 4 HOURS AND NEEDED- IF YOU REQUIRE 3 CONSECUTIVE TREATMENTS WITHOUT IMPROVEMENT, THEN RETURN TO ER FOR FURTHER EVALUATION AND TREATMENT 3. PREDNISONE 60MG DAILY X 5 DAYS 4. FOLLOW UP WITH PCP FOR FURTHER EVALUATION NEEDED 5. RETURN TO ER FOR WORSENING SYMPTOMS Sepsis Event Note (ED) - Evaluation Sepsis Screening Result: No Definite Risk - Focused Exam Vital Signs: Vital Signs Temp Pulse Resp BP Pulse Ox Pulse Ox 04/10/21 04:55 84 04/10/21 04:54 89 26 H 141/96 H 99 97 04/10/21 04:25 88 28 H 138/106 H 96 04/10/21 04:10 88 92 L 04/10/21 04:05 97.6 F 90 28 H 150/92 H 92 L - My Orders Last 24 Hours: My Active Orders 04/10/21 04:04 RT Aerosol Therapy [RC] ASDIRECTED 04/10/21 04:24 Chest 2V [CR] Stat Sodium Chloride 0.9% [Normal Saline] 1,000 ml IV .BOLUS Sodium Chloride 0.9% [Saline Flush] 10 ml FLUSH Q8HR PRN Peripheral IV Insertion Adult [OM.PC] Routine 04/10/21 04:25 Peripheral IV Care [RC] . DIRECTED 04/10/21 04:51 RT Aerosol Therapy [RC] ASDIRECTED - Assessment/Plan Last 24 Hours: My Active Orders 04/10/21 04:04 RT Aerosol Therapy [RC] ASDIRECTED 04/10/21 04:24 Chest 2V [CR] Stat Sodium Chloride 0.9% [Normal Saline] 1,000 ml IV .BOLUS Sodium Chloride 0.9% [Saline Flush] 10 ml FLUSH Q8HR PRN Peripheral IV Insertion Adult [OM.PC] Routine 04/10/21 04:25 Peripheral IV Care [RC] . DIRECTED 04/10/21 04:51 RT Aerosol Therapy [RC] ASDIRECTED Assessment:: 1. ASTHMA EXACERBATION- IMPROVED Plan: 1. DISCHARGE HOME 2. CONTINUE ALBUTEROL NEBS EVERY 4 HOURS AND NEEDED- IF YOU REQUIRE 3 CONSECUTIVE TREATMENTS WITHOUT IMPROVEMENT, THEN RETURN TO ER FOR FURTHER EVALUATION AND TREATMENT 3. PREDNISONE 60MG DAILY X 5 DAYS 4. FOLLOW UP WITH PCP FOR FURTHER EVALUATION NEEDED 5. RETURN TO ER FOR WORSENING SYMPTOMS
[2021-04-10] MEDS ORDERED: Sodium Chloride 0.9% 10 ML Syringe FLUSH PRN (04:24)
[2021-04-10] MEDS: Albuterol/Ipratropium 3.0-0.5 MG/3 ML Neb Soln NEB ONE ×2 (04:29→04:53)
[2021-04-10] MEDS: Sodium Chloride 0.9% 1,000 ML IV ONE (04:39)
[2021-04-10] MEDS: methylPREDNISolone Sodium Succinate 125 MG/2 ML SDV IVPUSH ONE (04:39)
[2021-04-10] MEDS: predniSONE 20 MG Tab PO ONE (05:17)
--- NOTE | 2021-04-10 09:14 | CR ---
[id number] RAD/RAD Chest PA And Lateral EXAM: RAD Chest PA And Lateral INDICATION: DYSPNEA COMPARISON: None. DISCUSSION/IMPRESSION: Cardiomediastinal silhouette is normal in size and contour. Lungs are clear. No pleural effusion or pneumothorax. Kleber Mei MD 04/10/21 [id number] Thank you for allowing us to participate in the care of your patient.
== END 2021-04-10 06:02 | disposition home or self-care (01) ==
LOC: KA.ED 03:57
DX: J45.901 Unspecified asthma with (acute) exacerbation (principal); Z79.899 Other long term (current) drug therapy
CPT/HCPCS: 71046; 94640; 96374; 99285-25; J2930; J7030; J7512; J7613-GY; J7620-GY

== ENCOUNTER 2021-12-09 10:15 | Emergency (ER) | payer OTHER ==
[2021-12-09] MEDS: Sodium Chloride 0.9% 1,000 ML IV ONE (10:40)
[2021-12-09] MEDS: Albuterol 0.083% 2.5 MG/3 ML Neb Soln NEB ONE ×3 (11:02→12:02)
[2021-12-09 11:06] LABS: ANION GAP 16.1 mmol/L (5-15)
[2021-12-09] MEDS: methylPREDNISolone Sodium Succinate 125 MG/2 ML SDV IVPUSH ONE (11:30)
[2021-12-09] MEDS: Acetaminophen 500 MG Tab ONE (11:44)
[2021-12-09] MEDS: Acetaminophen 500 MG Tab PO SCH (11:50)
[2021-12-09] MEDS: Albuterol/Ipratropium 3.0-0.5 MG/3 ML Neb Soln NEB ONE (12:32)
== END 2021-12-09 13:38 | disposition home or self-care (01) ==
LOC: KA.ED 10:15
DX: J45.21 Mild intermittent asthma with (acute) exacerbation (principal); E66.9 Obesity, unspecified; Z68.33 Body mass index [BMI] 33.0-33.9, adult; Z79.899 Other long term (current) drug therapy; Z90.710 Acquired absence of both cervix and uterus; Z87.891 Personal history of nicotine dependence; Z20.822 Contact with and (suspected) exposure to COVID-19
CPT/HCPCS: 36415; 71046; 80053; 85025; 85379; 94640; 96361; 96374; 99284; 99285-25; A9270-GY; J2930; J7030; J7613-GY; J7620-GY; U0002

== ENCOUNTER 2021-12-09 19:40 | Emergency (ER) | payer OTHER ==
[2021-12-09] MEDS: Albuterol/Ipratropium 3.0-0.5 MG/3 ML Neb Soln NEB ONE (20:04)
[2021-12-09] MEDS: Albuterol/Ipratropium 3.0-0.5 MG/3 ML Neb Soln ONE (20:16)
== END 2021-12-09 21:14 ==
LOC: KA.ED 19:40
DX: J45.901 Unspecified asthma with (acute) exacerbation (principal); R09.02 Hypoxemia; E66.9 Obesity, unspecified; Z68.33 Body mass index [BMI] 33.0-33.9, adult; Z79.899 Other long term (current) drug therapy; Z90.710 Acquired absence of both cervix and uterus; Z87.891 Personal history of nicotine dependence; Z20.822 Contact with and (suspected) exposure to COVID-19
CPT/HCPCS: 36415; 71046; 80053; 85025; 85379; 94640; 94660; 96361; 96374; 99284; 99285; 99285-25; A9270-GY; J2930; J7030; J7613-GY; J7620-GY; U0002